=== PATIENT | female | born 1940 | race Caucasian/White ===

== ENCOUNTER → 2019-10-25 | Outpatient (CLI) | payer OTHER ==
[~2019-10-25] MED LIST: ANTACID500 MG PO; CELEXA 20 MG TA20 M1 PO; CENTRUM TABLET1 TAB; FERROUS GLUCON325 M4 PO; LOVENOX; METAMUCIL FIBE3.4 GM; NORCO 7.5-3251 EACH PO; OXYBUTYNIN CHLOR5 M1 PO; PRINIVIL20 MG PO; QUESTRAN LIGHT P4 GM PO; SENEXON-S TABL1 EACH PO; VANCOCIN 250 M250 M1 PO; VITAMIN D-32000 UNIT PO
== END ==
LOC: HYPER 10:05
DX: L97.822 Non-pressure chronic ulcer of other part of left lower leg with fat layer exposed (principal); I89.0 Lymphedema, not elsewhere classified; I87.8 Other specified disorders of veins; I10 Essential (primary) hypertension; E66.01 Morbid (severe) obesity due to excess calories; G43.909 Migraine, unspecified, not intractable, without status migrainosus; M19.90 Unspecified osteoarthritis, unspecified site; M25.562 Pain in left knee; M17.12 Unilateral primary osteoarthritis, left knee; F41.9 Anxiety disorder, unspecified